=== PATIENT | female | born 1955 | race Caucasian/White ===

== ENCOUNTER → 2018-07-16 13:09 | Outpatient (CLI) | payer OTHER, SELFPAY | PROVIDERS: Family Provider Physician Assistant; PCP Physician Assistant; Visit Provider Physician Assistant | DX: M81.0 Age-related osteoporosis without current pathological fracture (principal); Z78.0 Asymptomatic menopausal state | CPT/HCPCS: 77080 ==

== ENCOUNTER → 2018-08-15 08:42 | Outpatient (CLI) | payer OTHER, SELFPAY ==
[2018-08-15 09:28] LABS: Alanine Aminotransferase 18 IU/L (9-52); Albumin 4.8 g/dL (3.5-5.0); Albumin Globulin Ratio 1.5 (1.0-2.8); Alkaline Phosphatase 83 U/L (38-126); Aspartate Aminotransferase 22 IU/L (14-36); BUN Creatinine Ratio 17.1 (6-22); Bilirubin Total 0.5 mg/dL (0.2-1.3); Blood Urea Nitrogen 12 mg/dL (7-17); Calcium 9.8 mg/dL (8.4-10.2); Carbon Dioxide 29 mmol/L (22-32); Chloride 103 mmol/L (98-107); Cholesterol 204 mg/dL (140-199); Estimated Glomerular Filt Rate > 60.0 mL/min (>60); Globulin 3.3 g/dL (1.7-4.1); Glucose 97 mg/dL (80-110); HDL Cholesterol 58 mg/dL (40-60); HEMOLYSIS < 15 (0-50); LDL Cholesterol Calculated 115 mg/dL (<100); Sodium 145 mmol/L (137-145); Total Protein 8.1 g/dL (6.3-8.2); Triglycerides 156 mg/dL (35-150)
[2018-08-15 12:16] LABS: Add Manual Diff / Slide Review NO; Basophils Percent Auto 1.4 % (0-2); Hematocrit 39.1 % (36-46); Hemoglobin 13.8 g/dL (12.0-16.0); Lymphocytes Percent Auto 30.8 % (25-40); Mean Corpuscular HGB Conc 35.2 % (30-36); Mean Corpuscular Volume 93.6 fL (80-100); Monocytes Percent Auto 8.1 % (3-14); Neutrophils Absolute Auto 5100 /uL (3000-5900); Neutrophils Percent Auto 56.7 % (50-75); Platelet Count 325 X10^3/uL (150-400); Red Blood Cell Count 4.18 X10^6/uL (4.0-5.2); Red Cell Distribution Width 12.2 % (11.6-14.8); White Blood Cell Count 8.9 X10^3/uL (4.5-11.0)
== END ==
PROVIDERS: Family Provider Physician Assistant; PCP Physician Assistant; Visit Provider Physician Assistant
DX: Z13.220 Encounter for screening for lipoid disorders (principal); Z13.6 Encounter for screening for cardiovascular disorders; Z13.29 Encounter for screening for other suspected endocrine disorder; Z13.1 Encounter for screening for diabetes mellitus; R31.9 Hematuria, unspecified; R30.0 Dysuria
CPT/HCPCS: 36415; 80053; 80061; 84443; 85025

== ENCOUNTER → 2018-09-25 08:21 | Outpatient (CLI) | payer OTHER, SELFPAY ==
--- NOTE | 2018-09-25 08:23 | DI.MG.S_ITS ---
BILATERAL DIGITAL DIAGNOSTIC MAMMOGRAM 3D/2D SHORT-TERM FOLLOW-UP: 09/25/2018 CLINICAL: One year follow up of the left breast, due for bilateral imaging. Comparison is made to exams dated: 08/20/2017 ultrasound, 08/20/2017 mammogram, 08/12/2016 mammogram, and 07/09/2016 mammogram - [facility]. The tissue of both breasts is heterogeneously dense. This may lower the sensitivity of mammography. There is 1.8 cm oval equal density mass with a circumscribed margin in the left breast at 1 o'clock middle depth. This is increased in size and correlates with the biopsy. There is a biopsy clip associated with the mass. No other significant masses, calcifications, or other findings are seen in either breast. IMPRESSION: INCOMPLETE: NEEDS ADDITIONAL IMAGING EVALUATION The 1.8 cm oval equal density mass in the left breast is indeterminate. An ultrasound is recommended. This exam was interpreted at Station ID: [id number]. NOTE: For mammograms, a report in lay terms will be sent to the patient. Approximately 15% of breast malignancies will not be visualized mammographically. In the management of a palpable breast mass, a negative mammogram must not discourage biopsy of a clinically suspicious lesion. Electronically Signed By: Lizandro leal/zakiya:09/25/2018 09:11:40 letter sent: Need Ultrasound ACR BI-RADS Category 0: Incomplete [id number]
--- NOTE | 2018-09-25 08:23 | DI.US.S_ITS ---
LIMITED ULTRASOUND OF LEFT BREAST: 09/25/2018 CLINICAL: Follow-up fibroadenoma. Comparison is made to exams dated: 09/25/2018 mammogram, 08/20/2017 ultrasound, 08/20/2017 mammogram, 08/12/2016 mammogram, 08/12/2016 ultrasound biopsy, and 07/12/2016 ultrasound [facility]. Color flow and real-time ultrasound of the left breast 12 o'clock region were performed on the areas of interest. There is a benign 1.7 cm x 1.8 cm x 1.4 cm oval mass with a circumscribed margin in the left breast at 12 o'clock posterior depth. This oval mass is hypoechoic. This abnormality is increased in size and correlates with mammography findings and the previous biopsy. Color flow imaging demonstrates that there is no increase in vascularity. IMPRESSION: BENIGN There is no sonographic evidence of malignancy. The 1.7 cm x 1.8 cm x 1.4 cm oval mass in the left breast is consistent with a biopsy proven fibroadenoma and is benign. Given progressive slight increase in size, a follow-up mammogram and an ultrasound in 12 months are recommended. This exam was interpreted at Station ID: [id number]. Electronically Signed By: Lizandro Tran M.D. ddjay/:09/25/2018 09:26:44 letter sent: Normal Exam Ultrasound BI-RADS: 2 Benign
== END ==
PROVIDERS: PCP Physician Assistant; Visit Provider Physician Assistant
DX: R92.8 Other abnormal and inconclusive findings on diagnostic imaging of breast (principal); D24.2 Benign neoplasm of left breast
CPT/HCPCS: 76642; 77066; G0279

== ENCOUNTER → 2019-07-27 09:41 | Outpatient (CLI) | payer OTHER, SELFPAY ==
--- NOTE | 2019-07-27 09:45 | DI.RAD.S_ITS ---
PROCEDURE: XR HAND RT MIN 3V INDICATIONS: Pain and arthritic changes in fingers of both hands TECHNIQUE: 3 views of the hand(s) acquired. COMPARISON: None. FINDINGS: Bones: No fractures or dislocations. Carpal bones are normally aligned. No suspicious bony lesions. Diffuse interphalangeal joint degeneration. No erosions identified. Chronic osseous fusion of the PIP joint of the little finger. First CMC and triscaphe joint degeneration Soft tissues: No suspicious soft tissue calcifications. IMPRESSION: Diffuse right hand osteoarthritis. Dictated by: Burton Pride M.D. on 07/27/2019 at 11:34 Approved by: Burton Pride M.D. on 07/27/2019 at 11:36
--- NOTE | 2019-07-27 09:45 | DI.RAD.S_ITS ---
PROCEDURE: XR HAND LT MIN 3V INDICATIONS: Pain and arthritic changes in fingers of both hands TECHNIQUE: 3 views of the hand(s) acquired. COMPARISON: [facility], CR, XR HAND RT MIN 3V, 07/27/2019, 9:41. FINDINGS: Bones: No fractures or dislocations. Carpal bones are normally aligned. No suspicious bony lesions. Possible early central erosions at the DIP joints of the index and middle finger. Diffuse interphalangeal joint degeneration. No definite marginal lucencies. First CMC and triscaphe joint degeneration Soft tissues: No suspicious soft tissue calcifications. IMPRESSION: Diffuse left hand joint degeneration. Possible early central erosions at the DIP joints of the index and middle fingers raises the possibility of early erosive osteoarthritis. Dictated by: Burton Pride M.D. on 07/27/2019 at 11:36 Approved by: Burton Pride M.D. on 07/27/2019 at 11:38
== END ==
PROVIDERS: PCP Physician Assistant; Visit Provider Physician Assistant
DX: M25.541 Pain in joints of right hand (principal); M25.542 Pain in joints of left hand; M18.0 Bilateral primary osteoarthritis of first carpometacarpal joints; M19.042 Primary osteoarthritis, left hand; M19.041 Primary osteoarthritis, right hand
CPT/HCPCS: 73130

== ENCOUNTER → 2019-08-19 08:35 | Outpatient (CLI) | payer OTHER, SELFPAY ==
[2019-08-19 09:56] LABS: Alanine Aminotransferase 13 IU/L (9-52); Albumin 4.7 g/dL (3.5-5.0); Albumin Globulin Ratio 1.6 (1.0-2.8); Alkaline Phosphatase 85 U/L (38-126); Aspartate Aminotransferase 25 IU/L (14-36); BUN Creatinine Ratio 18.3 (6-22); Bilirubin Total 0.5 mg/dL (0.2-1.3); Blood Urea Nitrogen 11 mg/dL (7-17); Calcium 9.9 mg/dL (8.4-10.2); Carbon Dioxide 26 mmol/L (22-32); Chloride 104 mmol/L (98-107); Cholesterol 181 mg/dL (140-199); Estimated Glomerular Filt Rate > 60.0 mL/min (>60); Globulin 2.9 g/dL (1.7-4.1); Glucose 93 mg/dL (80-110); HDL Cholesterol 61 mg/dL (40-60); HEMOLYSIS < 15 (0-50); LDL Cholesterol Calculated 100 mg/dL (<100); Potassium 4.3 mmol/L (3.4-5.1); Sodium 141 mmol/L (137-145); Total Protein 7.6 g/dL (6.3-8.2); Triglycerides 102 mg/dL (35-150)
[2019-08-19 10:08] LABS: Vitamin D 25 Hydroxy (D3) 65.2 ng/mL (30.0-100.0)
== END ==
PROVIDERS: PCP Physician Assistant; Visit Provider Physician Assistant
DX: E78.2 Mixed hyperlipidemia (principal); G25.0 Essential tremor; M81.0 Age-related osteoporosis without current pathological fracture
CPT/HCPCS: 36415; 80053; 80061; 82306

== ENCOUNTER → 2019-09-28 12:41 | Outpatient (CLI) | payer OTHER, SELFPAY ==
--- NOTE | 2019-09-28 12:42 | DI.US.S_ITS ---
LIMITED ULTRASOUND OF LEFT BREAST: 09/28/2019 CLINICAL: Follow-up of previously biopsied fibroadenoma. Comparison is made to exams dated: 09/28/2019 mammogram, 09/25/2018 ultrasound, 09/25/2018 mammogram, 08/20/2017 ultrasound, 08/20/2017 mammogram, and 08/12/2016 mammogram - [facility]. Color flow ultrasound of the left breast 12-1 o'clock region was performed. Bustos scale images of the real-time examination were reviewed. There is a 1.5 x 1.3 x 1.3 cm oval circumscribed hypoechoic mass with increased through transmission/posterior acoustic enhancement, and no internal vascularity on Doppler ultrasound located in the left breast at 12:30 position 8 cm from the nipple. Of note, comparison ultrasound images of 09/25/18 are labeled 12:30 position 8 cm from the nipple while the comparison report of 09/25/18 describes the mass as being at 12:00 position This appears to correlate with the finding seen on mammography. THis mass previously measured 1.8 x 1.7 x 1.4 cm on comparison exam of 09/25/18. IMPRESSION: BENIGN Stable 1.5 cm mass in the left breast at 12:30 position 8 cm from the nipple, correlating with the mass seen on mammography and consistent with the patient's previously biopsied fibroadenoma (reportedly biopsied on comparison exam of 08/12/19). A follow-up bilateral mammogram with targeted ultrasound in 12 months is recommended to demonstrate continued stability. The patient is advised to monitor her breasts and to return sooner for re-evaluation should she feel anything grow or change. This exam was interpreted at Station ID: [id number]. Electronically Signed By: Shant Bateman M.D. ecl/:09/28/2019 14:16:25 letter sent: Followup Recommended Ultrasound BI-RADS: 2 Benign
--- NOTE | 2019-09-28 12:42 | DI.MG.S_ITS ---
BILATERAL DIGITAL DIAGNOSTIC MAMMOGRAM 3D/2D SHORT-TERM FOLLOW-UP: 09/28/2019 CLINICAL: Patient returns for a follow up of the left breast. Due for bilateral imaging. Comparison is made to exams dated: 09/25/2018 mammogram, 08/20/2017 mammogram, and 07/09/2016 mammogram - [facility]. The tissue of both breasts is heterogeneously dense. This may lower the sensitivity of mammography. Previously identified oval mass in the superior left breast posteiror depth remains stable in apeparance to prior comparison mammogram of 09/25/18. This mass contains a previously placed biopsy clip. There is a subcentimeter oval asymmetry in the superior right breast anterior to middle depth which resolved with spot compression and tomosynthesis views, consistent with superimposed fibroglandular tissues. No other significant masses, calcifications, or other findings are seen in either breast. IMPRESSION: INCOMPLETE: NEEDS ADDITIONAL IMAGING EVALUATION Previously identified oval mass in the superior left breast posteiror depth remains stable in apeparance to prior comparison mammogram of 09/25/18. This mass contains a previously placed biopsy clip. A targeted ultrasound is recommended for further evaluation, and will be performed immediately following this exam. This exam was interpreted at Station ID: [id number]. NOTE: For mammograms, a report in lay terms will be sent to the patient. Approximately 15% of breast malignancies will not be visualized mammographically. In the management of a palpable breast mass, a negative mammogram must not discourage biopsy of a clinically suspicious lesion. Electronically Signed By: Shant Bateman M.D. ecl/:09/28/2019 14:10:10 ACR BI-RADS Category 0: Incomplete 3340F
== END ==
PROVIDERS: PCP Physician Assistant; Visit Provider Physician Assistant
DX: R92.8 Other abnormal and inconclusive findings on diagnostic imaging of breast (principal); D24.2 Benign neoplasm of left breast
CPT/HCPCS: 76642; 77066; G0279

== ENCOUNTER 2019-10-26 08:32 | Day surgery (SDC) | payer OTHER, SELFPAY ==
[2019-10-26] VITALS (9 sets, daily range): BP systolic 130–152; BP diastolic 83–97; PULSE 74–90; RESP 10–100; TEMP 36.4–36.9; O2SAT 95–99; BMI 24.1
--- NOTE | 2019-10-26 | PATH_ITS ---
[facility] Accession Number: [id number] . 01 Material submitted: . PART A: colon - TRANSVERSE COLON POLYP (NEAR HEPATIC FLEXURE) PART B: colon - COLON POLYP AT 30 CM X2 . 02 Diagnosis: A. Transverse Colon, Near Hepatic Flexure, Polyp: Tubulovillous adenoma. Negative for high-grade dysplasia or malignancy. . B. Colon at 30 cm, Polyps: Hyperplastic polyp x2. MRV 10/27/2019 1504 Local . 02 Electronically signed: . Tito Messer MD, PhD, Pathologist NPI- [id number] . 01 Gross description: . Part A: TRANSVERSE COLON POLYP (NEAR HEPATIC FLEXURE): Received in formalin are 3 fragment(s) of gonzalez, soft tissue measuring 0.8 x 0.5 x 0.5 cm to 0.6 x 0.2 x 0.2 cm submitted entirely in 1 cassette(s) Part B: COLON POLYP AT 30 CM X2: Received in formalin are 3 fragment(s) of gonzalez, soft tissue measuring 0.4 x 0.2 x 0.2 cm to 0.3 x 0.2 x 0.1 cm submitted entirely in 1 cassette(s) /QBJ 10/26/2019 2241 Local . 02 Pathologist provided ICD-10: D12.3, K63.5 . 02 CPT . 254935, 874522 Performed at: 01 [facility] [address], [place], [place] [id number] MD Lizandro Sanchez MD Phone: [phone] Performed at: 02 [facility] [address] , [place], [place] [id number] MD Cayla Guillory MD Phone: [phone]
[2019-10-26] MEDS: SODIUM CHLORIDE 0.9% 1,000 ML 200 ML IV (09:10)
--- NOTE | 2019-10-26 09:35 | PM.HP.1 ---
History of Present Illness History of Present Illness Date Patient Seen: 10/26/19 Time Patient Seen: 09:30 Chief complaint: [id number] Narrative: Patient is a woman here for screening colonoscopy. Last exam was 10 years ago. No family history of colon cancer. Patient History Medical History Chickenpox (Resolved ~1956) HPV in female (Resolved ~2004) Mumps (Resolved ~1956) Osteoarthritis (Chronic ~1999) Osteopenia after menopause (Chronic) Surgical History History of loop electrical excision procedure (LEEP) (Resolved 2003) Status post cholecystectomy (~1999) Family & Social History Family History Brother Age: 72 Diabetes mellitus Father Heart disease Mother Cancer Sister Age: 63 Hypertension Grandfather No problems noted. Grandmother Cancer Grandfather Cancer Grandmother Cancer Social History: household members spouse Tobacco & Substance use: Smoking Status Never smoker alcohol intake current Meds Home Medications and Allergies Home Medications Medication Instructions Recorded Confirmed Type [LUTEIN] 1 tab PO QDAY #0 07/29/17 07/27/19 History vitamin B complex [B 1 tab PO QDAY #0 07/29/17 07/27/19 History Complex-Vitamin B12] Calcium Citrate See Rx Instructions .ROUTE .COMPLEX 08/06/18 07/27/19 History Multivitamin See Rx Instructions .ROUTE .COMPLEX 08/06/18 07/27/19 History Omeprazole See Rx Instructions .ROUTE .COMPLEX 08/06/18 10/26/19 History Vitamin D3 See Rx Instructions .ROUTE .COMPLEX 08/06/18 07/27/19 History varicella-zoster gE-AS01B (PF) 50 50 mcg IM ONCE #1 each 08/06/18 07/27/19 Rx mcg/0.5 mL IM susp, kit estradiol 0.5 mg PO QDAY #90 tab 12/21/18 10/26/19 Rx Glucosamine/Chondroitin See Rx Instructions .ROUTE .COMPLEX 07/27/19 History medroxyprogesterone 5 mg tablet 5 mg PO QDAY #90 tab 08/23/19 10/26/19 Rx Allergies Allergy/AdvReac Type Severity Reaction Status Date / Time diclofenac AdvReac Severe Hematuria Verified 07/27/19 09:14 Review of Systems Review of Systems ROS Unobtainable: All systems reviewed & are unremarkable except as noted in HPI and below Musculoskeletal Comments: Some joint pain Exam Vital Signs (past 8 hours): - 10/26/19 09:01 Temperature 97.6 F Pulse Rate 90 Respiratory Rate 16 Blood Pressure 143/87 H Pulse Oximetry 98 Oxygen Delivery Method Room Air Narrative Exam Narrative: Pleasant cooperative patient no apparent distress. Lungs are clear to auscultation. No rales or rhonchi. Heart regular rate and rhythm no murmur gallop. Abdomen is soft nontender without mass. No obvious hernias. Patient is alert and oriented x3. Assessment & Plan Assessment & Plan narrative: The patient for a screening colonoscopy. I have discussed the procedure with them. Risks of bleeding, perforation which would necessitate major operation, failure to find remove all lesions, the potential tattoo were all discussed. All questions were answered. They wished to proceed.
--- NOTE | 2019-10-26 09:36 | PM.PREOP ---
Pre-operative Note Interval Note History & Physical reviewed/Exam performed by Physician: Yes Changes to H&P: No ASA Class (for procedural sedation): I
[2019-10-26] MEDS: fentaNYL 250 MCG/5 ML INJ IV (10:06)
[2019-10-26] MEDS: MIDAZOLAM 5 MG/5 ML VIAL IV (10:06)
--- NOTE | 2019-10-26 10:29 | PM.OP.ENDO ---
Operative Date/Time/Diagnoses Date of procedure: 10/26/19 Time of procedure: 10:29 Pre-op diagnosis: Screening exam. Last colonoscopy 10 years ago. Post-op diagnosis: same (Multiple polyps) Procedure & Clinicians Study performed: Colonoscopy with hot snare polypectomy, cold biopsy, and ink injection Same procedure as scheduled: Yes Indications: Screening Surgeon: Jasvir Becerra Procedure Notes SCOAP/Timeout: Performed Procedure in detail: The patient was placed in the left lateral decubitus position and underwent IV sedation directed by the surgeon consisting of fentanyl and Versed. Digital exam was unremarkable. The scope was inserted and advanced through the rectum into the sigmoid, descending, transverse, and ascending colon. In the area near the hepatic flexure there was a flat polyp at least a cm across which I snared and removed in pieces. I continued on into the cecum.. The cecum was reached identified by the ileocecal valve and the appendiceal opening. The scope was gradually brought out. The location of the snare polyp was noted and I cauterized the edge at this time. This was to make sure nothing was missed. I then injected ink in 1 location just distal to the lesion. Two other Polyps were found at about 20-30 cm and were removed with cold biopsy forceps and placed in the same container due to the proximity to 1 another.. The scope ultimately was retroflexed in the rectum. The appearance was normal. The scope was removed and the patient tolerated the procedure well. Prep was good. Scope withdrawal time: Greater than 6 min(26 total) Sedation minutes: 44 Findings: polyp Specimen(s): other (Polyps) Complications: none Post-procedure Recommendations: Colonscopy in 1 year Follow up: as needed Disposition: PACU
--- NOTE | 2019-10-26 10:57 | SUR.PHASEI ---
1031 arrived to pacu awake/drowsy/appropriate response, denied pain, desired to sleep.. 1057 Aroused easily to voice. HOB elevated, water given. Denies discomfort. Resp unlabored, skin warm and dry, VSS.
== END 2019-10-26 11:23 | disposition home or self-care (01) ==
PROVIDERS: PCP Physician Assistant; Visit Provider Specialist
PROC: 0DJD8ZZ Inspection of Lower Intestinal Tract, Via Natural or Artificial Opening Endoscopic (ICD-10-PCS; CPT 45378; principal; 2019-10-26 09:45)
DX: Z12.11 Encounter for screening for malignant neoplasm of colon (principal); D12.3 Benign neoplasm of transverse colon
CPT/HCPCS: 45381; 45385; 45380; 99152; 99153; J2250; J3010

== ENCOUNTER → 2019-11-12 16:25 | Outpatient (CLI) | payer OTHER, SELFPAY | PROVIDERS: PCP Physician Assistant; Visit Provider Nurse Practitioner | DX: R30.0 Dysuria (principal) | CPT/HCPCS: 87086 ==

== ENCOUNTER 2020-07-21 15:07 | Emergency (ER) | payer MEDICARE, SELFPAY ==
[2020-07-21 15:10] VITALS: BP 167/87; PULSE 76; RESP 14; TEMP 36.8; O2SAT 95; BMI 25.0
--- NOTE | 2020-07-21 15:18 | DI.RAD.S_ITS ---
PROCEDURE: XR CLAVICLE RT INDICATIONS: fall TECHNIQUE: 2 views of the clavicle were acquired. COMPARISON: None. FINDINGS: Bones: There is a displaced mid right clavicular fracture with the proximal fragment approximately 14 mm superior to the distal fragment. There is an approximate 12 mm overlap between proximal and distal fragments. Soft tissues: No suspicious soft tissue calcifications. IMPRESSION: Displaced mid right clavicular fracture. Dictated by: Lucinda Chery M.D. on 07/21/2020 at 15:35 Approved by: Lucinda Chery M.D. on 07/21/2020 at 15:37
--- NOTE | 2020-07-21 15:23 | ED.UPPEXIN ---
HPI - Extremity Injury (Upper) General Chief Complaint: Extremity Injury, Upper Stated Complaint: fell on right shoulder/fractured collar bone Time Seen by Provider: 07/21/20 15:12 Source: patient Mode of arrival: Ambulatory Limitations: no limitations History of Present Illness HPI narrative: Patient is a 65-year-old female who presents with a right shoulder injury. She went to [facility] this morning when she fell about 6 in landing mostly on her right shoulder. She did hit her head but no loss of consciousness. She had immediate swelling noticed tingling or weakness. Related Data Home Medications Medication Instructions Recorded Confirmed [LUTEIN] 1 tab PO QDAY #0 07/29/17 11/12/19 vitamin B complex [B 1 tab PO QDAY #0 07/29/17 11/12/19 Complex-Vitamin B12] Calcium Citrate See Rx Instructions .ROUTE .COMPLEX 08/06/18 11/12/19 Multivitamin See Rx Instructions .ROUTE .COMPLEX 08/06/18 11/12/19 Omeprazole See Rx Instructions .ROUTE .COMPLEX 08/06/18 11/12/19 Vitamin D3 See Rx Instructions .ROUTE .COMPLEX 08/06/18 11/12/19 Glucosamine/Chondroitin See Rx Instructions .ROUTE .COMPLEX 07/27/19 11/12/19 Previous Rx's Medication Instructions Recorded varicella-zoster gE-AS01B (PF) 50 50 mcg IM ONCE #1 each 08/06/18 mcg/0.5 mL IM susp, kit nitrofurantoin 100 mg PO BID #5 cap 11/12/19 monohydrate/macrocrystals 100 mg capsule medroxyprogesterone 5 mg tablet 5 mg PO QDAY #90 tab 05/24/20 estradiol 0.5 mg tablet 0.5 mg PO DAILY #90 tab 06/09/20 hydrocodone-acetaminophen 1 tab PO Q6H PRN #10 tab 07/21/20 Allergies Allergy/AdvReac Type Severity Reaction Status Date / Time diclofenac AdvReac Severe Hematuria Verified 07/21/20 15:14 Review of Systems Review of Systems Narrative: GENERAL: Denies chills,fever HEENT: Denies throat pain RESPIRATORY: Denies dyspnea, cough, wheezing CARDIOVASCULAR: Denies chest pain, palpitations GASTROINTESTINAL: Denies nausea, vomiting MUSCULOSKELETAL: See HPI SKIN: No rash, no laceration, no pruritus NEUROLOGIC: Denies weakness, dizziness, headache, numbness 8 point review of systems is negative except for those stated above and HPI Patient History Medical History Chickenpox (Resolved ~1956) HPV in female (Resolved ~2004) Mumps (Resolved ~1956) Osteoarthritis (Chronic ~1999) Osteopenia after menopause (Chronic) Surgical History History of loop electrical excision procedure (LEEP) (Resolved 2003) Status post cholecystectomy (~1999) Family History Brother Age: 73 Diabetes mellitus Father Heart disease Mother Cancer Sister Age: 64 Hypertension Grandfather No problems noted. Grandmother Cancer Grandfather Cancer Grandmother Cancer Social History household members: spouse Smoking Status: Never smoker second hand exposure: No alcohol intake: current substance use type: does not use Smoking Status: Never smoker alcohol intake frequency: holidays/special occasions only Substance Use Type: does not use Exam Initial Vital Signs Initial Vital Signs: Vital Signs Temperature 98.3 F 07/21/20 15:10 Pulse Rate 76 07/21/20 15:10 Respiratory Rate 14 07/21/20 15:10 Blood Pressure 167/87 H 07/21/20 15:10 Pulse Oximetry 95 07/21/20 15:10 GENERAL: Well-appearing, well-nourished and in no acute distress. CARDIOVASCULAR: peripheral pulses in tact, cap refill <2 sec RESPIRATORY: No respiratory distress, speaks in full sentences without difficulty EXTREMITIES: Normal range of motion, no clubbing or edema. Neurovascularly intact Right obvious clavicle deformity no tenting of skin but no breakthrough sensation in the deltoid intact distal radial pulse present NEUROLOGICAL: Cranial nerves II through XII grossly intact. Normal gait and speech. SKIN: Warm, dry, no petechiae, no rashes or lesions. Procedures Orthopedic Splinting/Casting Injury #1: Side: right Upper Extremity Injury Location: clavicle Upper Extremity Immobilizer: sling/shoulder immobilizer Post splinting neuro exam: intact Post splinting vascular exam: intact Placed by: Nursing Course Orders Ordered: ED Orders 07/21/20 15:18 XR clavicle RT Stat Discontinued Medications Ibuprofen (Advil) 800 mg PO NOW ONE Stop: 07/21/20 15:33 Last Admin: 07/21/20 15:36 Dose: 800 mg Documented by: WESLEY Vital Signs Vital signs: Vital Signs - 8 hr 07/21/20 15:10 07/21/20 15:51 Temperature 98.3 F Pulse Rate 76 86 Respiratory Rate 14 16 Blood Pressure 167/87 H 122/76 Pulse Oximetry 95 98 MDM - Extremity Injury (Upper) Imaging Data Extremity x-ray #1: Radiologist's Impression: PROCEDURE: XR CLAVICLE RT INDICATIONS: fall TECHNIQUE: 2 views of the clavicle were acquired. COMPARISON: None. FINDINGS: Bones: There is a displaced mid right clavicular fracture with the proximal fragment approximately 14 mm superior to the distal fragment. There is an approximate 12 mm overlap between proximal and distal fragments. Soft tissues: No suspicious soft tissue calcifications. IMPRESSION: Displaced mid right clavicular fracture. Dictated by: Lucinda Chery M.D. on 07/21/2020 at 15:35 Discharge Plan Departure Patient Disposition: Home Clinical Impression: Fracture of right clavicle Qualifiers: Encounter type: initial encounter Clavicle location: shaft Fracture alignment: displaced Discharge Date/Time: 07/21/20 15:52 Instructions: DI for Clavicle Fracture-Adult Activity Restrictions/Additional Instructions: *You have been diagnosed with right clavicle fracture *What to do: Your fracture may actually require surgery. Please follow-up with orthopedics. Keep arm in sling at all times including while sleeping. May ice 20-30 minutes at a time *Continue to take medications as directed [place] 1 tablet every 6 hours if needed for severe pain *Follow up with your primary care provider in 2-3 days *Return to ER if you should have increasing weakness, numbness, tingling or any new, worsening or concerning symptoms CONTROLLED SUBSTANCE DISCHARGE (Narcotoic/benzodiazepine/Flexeril/Phenergan) 1. You have been prescribed narcotic medications, it does have acetaminophen/Tylenol/paracetamol in it so do not take extra Tylenol or Tylenol containing products TRAMADOL DOES NOT CONTAIN TYLENOL 2. Please understand that we cannot provide further refills of narcotics, benzodiazepines or controlled substances through the ED and her pain management will need to be through your provider. 3. While on these medications you cannot drive or operate heavy machinery. 4. You cannot sign legal documents or perform any duties such as this. 5. As long as you're taking opiate pain medications he should also be taking a stool softener such as Colace, Dulcolax, MiraLAX or prune juice, to help avoid constipation. Prescriptions: New hydrocodone-acetaminophen 5-325 mg tablet 1 tab PO Q6H PRN (Reason: pain) Qty: 10 RF: 0 No Action Calcium Citrate See Rx Instructions .ROUTE .COMPLEX RF: 0 Omeprazole See Rx Instructions .ROUTE .COMPLEX RF: 0 Vitamin D3 See Rx Instructions .ROUTE .COMPLEX RF: 0 Multivitamin See Rx Instructions .ROUTE .COMPLEX RF: 0 varicella-zoster gE-AS01B (PF) [Shingrix (PF)] 50 mcg/0.5 mL suspension for reconstitution 50 mcg IM ONCE Qty: 1 RF: 1 nitrofurantoin monohyd/m-cryst [Macrobid] 100 mg capsule 100 mg PO BID Qty: 5 RF: 0 vitamin B complex [B Complex-Vitamin B12] 1 EACH tablet 1 tab PO QDAY Qty: 0 RF: 0 [LUTEIN] 1 tab PO QDAY Qty: 0 RF: 0 medroxyprogesterone 5 mg tablet 5 mg PO QDAY Qty: 90 RF: 0 estradiol 0.5 mg tablet 0.5 mg PO DAILY Qty: 90 RF: 0 Glucosamine/Chondroitin See Rx Instructions .ROUTE .COMPLEX RF: 0 Referrals: [facility] [Provider Group] Abbey Serrato ARNP [Primary Care Provider] -
[2020-07-21] MEDS: IBUPROFEN 400 MG TABLET 800 MG PO (15:36)
--- NOTE | 2020-07-21 15:41 | CM.MNRNOTE ---
sling applied to r arm
[2020-07-21 15:51] VITALS: BP 122/76; PULSE 86; RESP 16; O2SAT 98
== END 2020-07-21 15:52 | disposition home or self-care (01) ==
PROVIDERS: Emergency Provider Emergency Medicine; PCP Nurse Practitioner Family
DX: S42.021A Displaced fracture of shaft of right clavicle, initial encounter for closed fracture (principal); W19.XXXA Unspecified fall, initial encounter
CPT/HCPCS: 73000; 99283

== ENCOUNTER → 2020-11-01 09:47 | Outpatient (CLI) | payer MEDICARE, SELFPAY ==
[2020-11-01 11:57] LABS: COVID19 -Nasal RAPID Negative (Negative)
== END ==
PROVIDERS: PCP Nurse Practitioner Family; Visit Provider Specialist
DX: Z01.812 Encounter for preprocedural laboratory examination (principal); Z20.828 Contact with and (suspected) exposure to other viral communicable diseases
CPT/HCPCS: 87635; C9803

== ENCOUNTER 2020-11-02 06:38 | Day surgery (SDC) | payer MEDICARE, SELFPAY ==
[2020-11-02 07:20] VITALS: BP 157/93; PULSE 89; RESP 16; TEMP 36.3; O2SAT 99; BMI 25.2
[2020-11-02] MEDS: LACTATED RINGERS 1,000 ML 200 ML IV (07:30)
--- NOTE | 2020-11-02 07:41 | PM.HP.1 ---
History of Present Illness History of Present Illness Date Patient Seen: 11/02/20 Time Patient Seen: 07:39 Chief complaint: SDC Narrative: The patient is a woman here for a follow-up examination. I removed a large hepatic flexure polyp that was flat a year ago and she is brought back to confirm that there is no regrowth and that the entire lesion had been removed. Patient History Medical History Abnormal mammogram (09/2019) Chickenpox (~1957) Colon polyp (10/2019) Hot flashes due to menopause HPV in female (~2004) Mumps (~1956) Osteoarthritis (~1999) Osteopenia after menopause Surgical History History of loop electrical excision procedure (LEEP) (2003) Status post cholecystectomy (~1999) Family & Social History Family History Brother Age: 73 Diabetes mellitus Father Heart disease Mother Cancer Sister Age: 64 Hypertension Grandfather No problems noted. Grandmother Cancer Grandfather Cancer Grandmother Cancer Social History: household members spouse Tobacco & Substance use: Smoking Status Never smoker alcohol intake current alcohol intake frequency holiday/special occasion Substance Use Type does not use Meds Home Medications and Allergies Home Medications Medication Instructions Recorded Confirmed Type vitamin B complex [B 1 tab PO QDAY #0 07/29/17 11/02/20 History Complex-Vitamin B12] Calcium Citrate See Rx Instructions .ROUTE .COMPLEX 08/06/18 11/02/20 History Multivitamin See Rx Instructions .ROUTE .COMPLEX 08/06/18 11/02/20 History Vitamin D3 See Rx Instructions .ROUTE .COMPLEX 08/06/18 11/02/20 History medroxyprogesterone 5 mg tablet 5 mg PO QDAY #90 tab 05/24/20 11/02/20 Rx famotidine 20 mg tablet 20 mg PO DAILY 08/03/20 11/02/20 History estradiol 0.5 mg tablet 0.5 mg PO DAILY #90 tab 09/05/20 11/02/20 Rx Allergies Allergy/AdvReac Type Severity Reaction Status Date / Time diclofenac AdvReac Severe Hematuria Verified 08/03/20 08:30 Review of Systems Review of Systems Narrative: Wears glasses ROS: Yes All systems reviewed with the patient and are negative except as otherwise documented Exam Vital Signs (past 8 hours): - 11/02/20 07:20 Temperature 97.4 F L Pulse Rate 89 Respiratory Rate 16 Blood Pressure 157/93 H Pulse Oximetry 99 Oxygen Delivery Method Room Air Narrative Exam Narrative: Pleasant cooperative patient no apparent distress. Lungs are clear to auscultation. No rales or rhonchi. Heart regular rate and rhythm no murmur gallop. Abdomen is soft nontender without mass. No obvious hernias. Patient is alert and oriented x3. Assessment & Plan Assessment & Plan narrative: The patient for a screening colonoscopy. I have discussed the procedure with them. Risks of bleeding, perforation which would necessitate major operation, failure to find remove all lesions, the potential tattoo were all discussed. All questions were answered. They wished to proceed.
--- NOTE | 2020-11-02 07:43 | PM.PREOP ---
Pre-operative Note COVID-19 COVID-19 status: Negative Result date/Date tested (Pos, Neg/Pending): 11/01/20 Interval Note History & Physical reviewed/Exam performed by Physician: Yes Changes to H&P: No ASA Class (for procedural sedation): I
[2020-11-02] MEDS: fentaNYL 250 MCG/5 ML INJ IV ×2 (07:47→08:05)
[2020-11-02] MEDS: MIDAZOLAM 5 MG/5 ML VIAL IV (07:49)
--- NOTE | 2020-11-02 08:20 | PM.OP.ENDO ---
Operative Date/Time/Diagnoses Date of procedure: 11/02/20 Time of procedure: 08:21 Pre-op diagnosis: History of a large polyp at the hepatic flexure removed a year ago. Patient is brought back to confirm there is no regrowth Post-op diagnosis: same (No regrowth of polyp found.) Procedure & Clinicians Study performed: Colonoscopy Same procedure as scheduled: Yes Indications: See above Surgeon: Jasvir Becerra Procedure Notes SCOAP/Timeout: Performed Procedure in detail: The patient was placed in the left lateral decubitus position and underwent IV sedation directed by the surgeon consisting of fentanyl and Versed. Digital exam was unremarkable. The scope was inserted and advanced through the rectum into the sigmoid, descending, transverse, and ascending colon. The patient's colon is somewhat tortuous.. The cecum was reached identified by the ileocecal valve and the appendiceal opening. The scope was gradually brought out. No Polyps were found. The tattooed area from her prior exam was easily found and there were no lesions in the region. The scope ultimately was retroflexed in the rectum. The appearance was remarkable for internal hemorrhoids.. The scope was removed and the patient tolerated the procedure well Scope withdrawal time: 6 minutes Sedation minutes: 22 Findings: internal hemorrhoids Specimen(s): none sent Complications: none Post-procedure Recommendations: Colonscopy in 5 years Follow up: as needed Disposition: PACU
[2020-11-02 08:22] VITALS: BP 148/91; PULSE 108; RESP 10; TEMP 36.4; O2SAT 93
[2020-11-02 08:27] VITALS: BP 146/81; PULSE 102; RESP 12; O2SAT 96
[2020-11-02 08:32] VITALS: BP 151/89; PULSE 98; RESP 16; O2SAT 97
[2020-11-02 08:42] VITALS: BP 147/96; PULSE 93; RESP 15; O2SAT 97
== END 2020-11-02 08:54 | disposition home or self-care (01) ==
PROVIDERS: PCP Nurse Practitioner Family; Referring Provider Nurse Practitioner Family; Visit Provider Specialist
PROC: 0DJD8ZZ Inspection of Lower Intestinal Tract, Via Natural or Artificial Opening Endoscopic (ICD-10-PCS; CPT 45378; principal; 2020-11-02 07:45)
DX: Z09 Encounter for follow-up examination after completed treatment for conditions other than malignant neoplasm (principal); Z86.010 Personal history of colon polyps; K64.8 Other hemorrhoids
CPT/HCPCS: 45378; 99152; J2250; J3010

== ENCOUNTER → 2021-01-15 13:20 | Outpatient (CLI) | payer MEDICARE, SELFPAY ==
--- NOTE | 2021-01-15 13:21 | DI.MG.S_ITS ---
BILATERAL DIGITAL DIAGNOSTIC MAMMOGRAM 3D/2D SHORT-TERM FOLLOW-UP: 01/15/2021 CLINICAL: Short term follow up of the left breast, due for bilateral imaging. Comparison is made to exams dated: 09/28/2019 mammogram, 09/25/2018 mammogram, 08/20/2017 mammogram, 09/28/2019 ultrasound, and 09/25/2018 ultrasound - [facility]. The tissue of both breasts is heterogeneously dense. This may lower the sensitivity of mammography. 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 This is decreased in size and correlates with ultrasound findings and the biopsy. No other significant masses, calcifications, or other findings are seen in either breast. IMPRESSION: BENIGN There is no mammographic evidence of malignancy. Left breast fibroadenoma is decreased in size and is benign. A 1 year screening mammogram is recommended. Exam findings were conveyed to the patient. This exam was interpreted at Station ID: [id number]. NOTE: For mammograms, a report in lay terms will be sent to the patient. Approximately 15% of breast malignancies will not be visualized mammographically. In the management of a palpable breast mass, a negative mammogram must not discourage biopsy of a clinically suspicious lesion. Electronically Signed By: Stuart Leon M.D. [facility] [place]/:01/15/2021 14:31:16 letter sent: Normal Exam ACR BI-RADS Category 2: Benign Finding(s) [id number]
== END ==
PROVIDERS: PCP Nurse Practitioner Family; Referring Provider Nurse Practitioner Family; Visit Provider Nurse Practitioner Family
DX: R92.8 Other abnormal and inconclusive findings on diagnostic imaging of breast (principal); D24.2 Benign neoplasm of left breast
CPT/HCPCS: 77066; G0279